=== PATIENT | female | born 1950 | race Caucasian/White ===

== ENCOUNTER 2017-10-18 17:26 | Inpatient (IN) | payer OTHER ==
[~2017-10-18] VITALS: Ht 170.2 cm; Wt 83.9 kg
--- NOTE | ~2017-10-18 | 2DMMODE ---
[facility] [address] [place] [address] 2 D/M-MODE ECHOCARDIOGRAM Name: COLLINS SAMUELS Room #: 349-I ADM IN [facility]#: [id number] Admission: 10/18/17 Attend Phys: Rick Moreira, Discharge: Date of : 52 Date of Service: 10/19/17 1344 Report #: [id number] THIS REPORT FOR: //name// APPROVED REPORT Study performed: 10/19/2017 12:46:49 EXAM: Comprehensive 2D, Doppler, and color-flow Echocardiogram Patient Location: Echo lab Room #: 349 Status: routine BSA: 1.96 HR: 74 bpm BP: 168/84 mmHg Rhythm: NSR Other Information Study Quality: Good Indications HTN, TIA. Hx: CAD, PVD, TIA, HTN, HLP, DM, tobacco abuse. Echo Enhancing Agent Indication: Rule out Shunt Agent(s) / Amount(s) Used: Agitated Saline 6 cc 2D Dimensions RVDd: 31.24 mm LVEF(%): 51.67 (>50%) IVSd: 14.27 (7-11mm) LVOT Diam: 19.28 (18-24mm) LVDd: 42.63 mm PWd: 8.53 (7-11mm) LVDs: 31.47 (25-40mm) Aortic Root: 26.12 mm Cadena's LVEF: 51.67 % Volumes Left Atrial Volume (Systole) Single Plane 4CH: 16.93 mL Single Plane 2CH: 25.27 mL Aortic Valve AoV Peak Breezy.: 1.20 m/s AO Peak Gr.: 5.74 mmHg LVOT Max P.05 mmHg LVOT Max V: 0.87 m/s YUE Vmax: 2.12 cm2 [facility] [place] [place] [address] 2 D/M-MODE ECHOCARDIOGRAM Name: ARVINDCOLLINS L Room #: 349-I ADM IN .R.#: [id number] Admission: 10/18/17 Attend Phys: Rick Moreira, Discharge: Date of : 52 Date of Service: 10/19/17 1344 Report #: [id number] Mitral Valve E/A Ratio: 1.1 MV Decel. Time: 163.96 ms MV E Max Breezy.: 0.75 m/s MV A Breezy.: 0.68 m/s MV PHT: 47.55 ms IVRT: 92.27 ms Pulmonary Valve PV Peak Breezy.: 0.77 m/s PV Peak Gr.: 2.35 mmHg Pulmonary Vein P Vein S: 0.53 m/s P Vein A: 0.30 m/s P Vein D: 0.50 m/s P Vein S/D Ratio: 1.06 Tricuspid Valve TR Peak Breezy.: 1.94 m/s RAP Estimate: 5.00 mmHg TR Peak Gr.: 15.05 mmHg PA Pressure: 20.00 mmHg Shunt Evaluation QP/QS: 0.00 Left Ventricle The left ventricle is normal size. There is normal LV segmental wall motion. Mild basal septal hypertrophy is present. Left ventricular systolic function is normal. LVEF is 60%. Right Ventricle The right ventricle is normal size. The right ventricular systolic function is normal. Atria The left atrium size is normal. No shunting noted by contrast bubble injection. The right atrium size is normal. Aortic Valve The aortic valve is mildly sclerotic. No aortic regurgitation. There is no aortic valvular stenosis. Mitral Valve The mitral valve is normal in structure. Trace to mild mitral regurgitation. Tricuspid Valve [facility] [address] [place] [address] 2 D/M-MODE ECHOCARDIOGRAM Name: COLLINS SAMUELS Room #: 349-I [facility] IN [facility]#: [id number] Admission: 10/18/17 Attend Phys: Rick Moreira, Discharge: Date of : 52 Date of Service: 10/19/17 1344 Report #: [id number] The tricuspid valve is normal in structure. Trace tricuspid regurgitation. Estimated PAP is 20-25mmHg. Pulmonic Valve The pulmonary valve is normal in structure. Trace pulmonic regurgitation. Great Vessels The aortic root is normal in size. Ascending aorta is not well visualized. IVC is normal in size and collapses >50% with inspiration. Pericardium There is no pericardial effusion. <Conclusion> Left ventricular systolic function is normal. There is normal LV segmental wall motion. LVEF 60%. No shunting noted by contrast bubble injection. The aortic valve is mildly sclerotic. No aortic regurgitation or stenosis. The mitral valve is normal in structure. Trace to mild mitral regurgitation. Trace tricuspid regurgitation. Estimated pulmonary artery pressure of 20-25mmHg. There is no pericardial effusion. <ELECTRONICALLY SIGNED> By: Balbir Bosch MD, FACC 10/19/17 1344 1344 1344 Balbir Bosch MD, FACC /INF
--- NOTE | ~2017-10-18 | HC ---
[facility] [place] [address] CONSULTATION Name: COLLINS SAMUELS Room #: 349-I ADM IN ..#: [id number] Admission: 10/18/17 Attend Phys: Rick Moreira MD Discharge: Date of : 52 Report #: [id number] THIS REPORT FOR: //name// CC: Mckay Collinscusromana Moreira DATE OF SERVICE: 10/19/2017 HISTORY OF PRESENT ILLNESS: This 66-year-old female patient who was evaluated by me because she had an episode of weakness and numbness on the left side with some speech difficulty. She indicated that she was in [facility] about 2 months ago when she had a stroke affecting the left side of the body. She made reasonably good recovery from that, but then she became weak again on the left side. They noticed new stroke as well as old strokes. At this time, her weakness is moderately severe. It does not fluctuate. She does not know anything which makes it better or worse. She indicates she is not on any antiplatelet therapy, but record indicate that she is on aspirin and Plavix and I am not sure when they have been started. REVIEW OF SYSTEMS: Indicate that she had a stroke 2 months ago. She has a history of hypertension and diabetes. A 14-point review of system was carried out. She does have some UTI in the past. She had right knee replacement. She has a history of asthma. She has a history of fibromyalgia , hysterectomy. She was not complaining of any new eye, ENT, cardiac, respiratory, GI, , musculoskeletal, constitutional, dermatological, hematological, psychiatric, throat, allergic symptom associated with present symptomatology, although she has multiple other histories as described above. PAST MEDICAL HISTORY: Positive for stroke, which happened 2 months ago. FAMILY HISTORY: Negative for any early age stroke. SOCIAL HISTORY: She does have a history of smoking. PHYSICAL EXAMINATION: Indicate she is alert. She is responsive. She is oriented. She can follow simple and complex command. Her speech, concentration, fund of knowledge and memory is at her baseline. Cranial nerve examination 2-12 looks unremarkable. She is weak in the left upper and left lower extremity. She takes longer for the position sense on the left side. There is no cerebellar sign. There is no carotid bruit in this patient. There is no thyroid mass. I could not have a very good look at the patient's fundus. She is moderately built individual who does not have any dysmorphic features of eyes, ears and face. Cardiac examinations appear unremarkable. The pulses are unremarkable. There is no edema, cyanosis or jaundice. Her hearing and vision [address] [address] CONSULTATION Name: COLLINS SAMUELS Room #: 349-I ADM IN M.R.#: [id number] Admission: 10/18/17 Attend Phys: Rick Moreira MD Discharge: Date of : 52 Report #: [id number] looks adequate. LABORATORY DATA: Her sodium is normal. Her white count is 11.3. Her head CT does show subacute strokes, which should not be showing up from the last and it may be new. IMPRESSION: 1. Cerebrovascular accident. 2. Smoking. 3. Multiple vascular risk factors. RECOMMENDATION: 1. She is on aspirin and Plavix for the time being and I think we will leave her on for 21 days and then she can be on Plavix. 2. I will get an MRA done. 3. We will get the record from [facility]. Depending upon the workup there, she may need more workup here because she is having a recurrence of CVA. Thank you very much for this referral and we will check a lipid profile on this patient also. By: 1332 10 Vance Lara MD /nt
--- NOTE | ~2017-10-18 | EKG ---
[address] [address] ELECTROCARDIOGRAM REPORT Name: COLLINS SAMUELS Room #: 170-5 ADM IN ..#: [id number] Admission: 10/18/17 Attend Phys: Dejan Saez MD Discharge: Date of : 52 Report #: [id number] THIS REPORT FOR: //name// [facility] ED Test Date: 2017-10-18 Test Time: 18:28:33 Pat Name: COLLINS SAMUELS Department: Room: Gender: F Computer Sciences Professor: lincoln : 1950 Requested By: Alexei Peralta Order Number: [id number] MD: Fede Torres Measurements Intervals [place] Rate: 104 P: 48 MN: 149 QRS: 27 QRSD: 94 T: 53 QT: 333 QTc: 438 Interpretive Statements Sinus tachycardia Compared to ECG 01/04/2016 08:15:00 Sinus rhythm no longer present Electronically Signed On 10-18-2017 21:21:12 CDT by Fede Torres [email or web address] <ELECTRONICALLY SIGNED> By: Fede Torres MD 10/18/172120 27 27 Fede Torres MD /OLIVIA
[~2017-10-18 17:26] MED LIST: ASPIRIN325 PO; BYSTOLIC 5 MG5 M1 PO; CRESTOR10 MG PO; CYMBALTA60 MG PO; FENOFIBRATE160 MG PO; FLEXERIL PO; JANUMET 50-1,01 EACH PO; NEURONTIN 300300 M1 PO; PROTONIX40 M3 PO; VASCEPA1 GM PO; WELLBUTRIN XL300 MG PO
[2017-10-18 19:12] LABS: EOSINOPHILS 1.2 % (0.0-3.0); HEMATOCRIT 43.8 % (37.0-47.0); HEMOGLOBIN 14.7 gm/dL (12.0-15.0); LYMPHOCYTES 40.3 % (24.0-44.0); MCH 31.4 pg (26.0-34.0); MCHC 33.5 g/dL (28.0-37.0); MCV 93.8 fL (80.0-100.0); MONOCYTES 4.8 % (1.0-8.0); PLATELET COUNT 295 thou/uL (150-400); POLYS 52.7 % (36.0-66.0); RBC 4.67 mil/uL (4.20-5.00); RDW 13.2 % (10.5-14.5); WBC 13.3 thou/uL (4.0-11.0)
[2017-10-18 19:17] LABS: CALCIUM 9.4 mg/dL (8.5-10.1); CREATININE 1.2 mg/dL (0.6-1.0)
[2017-10-18 19:25] LABS: APTT 24.7 Seconds (24.5-32.8)
[2017-10-18 20:08] LABS: URINE BILIRUBIN NEGATIVE (Negative); URINE BLOOD NEGATIVE (Negative); URINE CLARITY CLEAR; URINE COLOR YELLOW; URINE GLUCOSE-RANDOM* NEGATIVE (Negative); URINE KETONES NEGATIVE (Negative); URINE LEUKOCYTES 1+ (Negative); URINE NITRITE NEGATIVE (Negative); URINE PROTEIN (DIPSTICK) NEGATIVE (Negative); URINE UROBILINOGEN 0.2 E.U./dl (0.2-1.0)
[2017-10-18 20:22] LABS: SQUAMOUS >10 Many /LPF (0-3); URINE RBC 0-2 Rare /HPF (0-2); URINE WBC 6-15 Few /HPF (0-5)
[2017-10-18 20:24] LABS: BACTERIA None Seen /HPF (None Seen); CASTS None Seen /LPF (None Seen); CRYSTALS None Seen /LPF (None Seen)
[2017-10-18 21:45] VITALS: BP 145/76
[2017-10-18 21:47] VITALS: BP 145/76
[2017-10-18 22:00] VITALS: BP 135/77
[2017-10-19 03:42] VITALS: BP 128/61
[2017-10-19 05:59] LABS: HEMATOCRIT 39.5 % (37.0-47.0); HEMOGLOBIN 13.3 gm/dL (12.0-15.0); MCH 31.9 pg (26.0-34.0); MCHC 33.8 g/dL (28.0-37.0); MCV 94.4 fL (80.0-100.0); RBC 4.18 mil/uL (4.20-5.00); RDW 13.5 % (10.5-14.5); WBC 11.3 thou/uL (4.0-11.0)
[2017-10-19 06:06] LABS: CALCIUM 9.1 mg/dL (8.5-10.1); CREATININE 1.1 mg/dL (0.6-1.0); POTASSIUM 4.5 mmol/L (3.5-5.1)
[2017-10-19 07:24] VITALS: BP 146/71
[2017-10-19 11:23] VITALS: BP 168/84
[2017-10-19 12:56] LABS: URINE BILIRUBIN NEGATIVE (Negative); URINE BLOOD NEGATIVE (Negative); URINE CLARITY CLEAR; URINE COLOR YELLOW; URINE GLUCOSE-RANDOM* NEGATIVE (Negative); URINE KETONES NEGATIVE (Negative); URINE LEUKOCYTES-REFLEX NEGATIVE (Negative); URINE NITRITE-REFLEX NEGATIVE (Negative); URINE PROTEIN (DIPSTICK) NEGATIVE (Negative); URINE SPECIFIC GRAVITY >= 1.030 (1.005-1.035); URINE UROBILINOGEN 0.2 E.U./dl (0.2-1.0)
[2017-10-19 15:32] VITALS: BP 167/79
[2017-10-19 19:24] VITALS: BP 137/66
[2017-10-20 04:21] VITALS: BP 148/73
[2017-10-20 07:58] VITALS: BP 161/88
[2017-10-20 11:33] VITALS: BP 149/96
[2017-10-20 17:39] VITALS: BP 159/79
[2017-10-20] MEDS ORDERED: TYLENOL325 MG PO (18:00)
[2017-10-20] MEDS ORDERED: PLAVIX 75 MG TA75 M1 PO (18:00)
[2017-10-20] MEDS ORDERED: ZETIA10 MG PO (18:00)
[2017-10-20] MEDS ORDERED: LISINOPRIL10 MG PO (18:00)
[2017-10-20 18:22] LABS: TSH 0.578 uIU/mL (0.358-3.740)
[2017-10-20 18:24] VITALS: BP 159/79
== END 2017-10-20 19:18 | disposition home or self-care (01) | DRG 65 ==
LOC: ER 17:26 → 3W 20:59 → EROBS 20:59 → 3W 21:47
PROVIDERS: Emergency Medicine; Internal Medicine; Nurse Practitioner Family; Psychiatry & Neurology Neuromuscular Medicine
DX: I63.233 Cerebral infarction due to unspecified occlusion or stenosis of bilateral carotid arteries (principal); N39.0 Urinary tract infection, site not specified; N17.9 Acute kidney failure, unspecified; E78.00 Pure hypercholesterolemia, unspecified; M79.7 Fibromyalgia; E11.65 Type 2 diabetes mellitus with hyperglycemia; J45.909 Unspecified asthma, uncomplicated; I10 Essential (primary) hypertension; K21.9 Gastro-esophageal reflux disease without esophagitis; I08.1 Rheumatic disorders of both mitral and tricuspid valves; E11.51 Type 2 diabetes mellitus with diabetic peripheral angiopathy without gangrene; Z96.651 Presence of right artificial knee joint; F41.9 Anxiety disorder, unspecified; F17.210 Nicotine dependence, cigarettes, uncomplicated; I25.10 Atherosclerotic heart disease of native coronary artery without angina pectoris; Z90.710 Acquired absence of both cervix and uterus; Z87.81 Personal history of (healed) traumatic fracture; Z86.73 Personal history of transient ischemic attack (TIA), and cerebral infarction without residual deficits; Z90.49 Acquired absence of other specified parts of digestive tract; Z79.82 Long term (current) use of aspirin; Z79.899 Other long term (current) drug therapy; Z88.8 Allergy status to other drugs, medicaments and biological substances; Z82.3 Family history of stroke
CPT/HCPCS: 10879

== ENCOUNTER 2018-02-15 12:16 | Emergency (ER) | payer OTHER ==
[~2018-02-15] VITALS: Ht 167.6 cm; Wt 83.9 kg
[~2018-02-15 12:16] MED LIST changes: +CEFUROXIME250 MG PO; +LANTUS100 UNIT/M SUBQ; +LISINOPRIL10 MG PO; +PLAVIX 75 MG TA75 M1 PO; +TRAMADOL 50 MG50 MG PO; +TYLENOL325 MG PO; +ZETIA10 MG PO
[2018-02-15] MEDS ORDERED: NORCO 5-325 TA1 EACH PO (13:08)
[2018-02-15] MEDS ORDERED: CYCLOBENZAPRINE5 MG PO (13:08)
== END 2018-02-15 13:19 | disposition home or self-care (01) ==
LOC: ER 12:16
DX: M25.561 Pain in right knee (principal); M79.671 Pain in right foot; M79.7 Fibromyalgia; E11.9 Type 2 diabetes mellitus without complications; J45.909 Unspecified asthma, uncomplicated; I10 Essential (primary) hypertension; K21.9 Gastro-esophageal reflux disease without esophagitis; F17.210 Nicotine dependence, cigarettes, uncomplicated; Z96.651 Presence of right artificial knee joint; Z90.710 Acquired absence of both cervix and uterus; Z90.49 Acquired absence of other specified parts of digestive tract; Z79.4 Long term (current) use of insulin; Z79.899 Other long term (current) drug therapy; Z88.8 Allergy status to other drugs, medicaments and biological substances; Z91.018 Allergy to other foods; W10.0XXA Fall (on)(from) escalator, initial encounter; Y93.89 Activity, other specified; Y92.89 Other specified places as the place of occurrence of the external cause; Y99.8 Other external cause status

== ENCOUNTER → 2019-11-14 | Outpatient (CLI) | payer OTHER ==
[~2019-11-14] MED LIST changes: +CYCLOBENZAPRINE5 MG PO; +NORCO 5-325 TA1 EACH PO
== END ==
LOC: SJCVC 13:46
PROVIDERS: ATTEND Internal Medicine Cardiovascular Disease
DX: R94.31 Abnormal electrocardiogram [ECG] [EKG] (principal); I65.23 Occlusion and stenosis of bilateral carotid arteries; I25.10 Atherosclerotic heart disease of native coronary artery without angina pectoris; E11.9 Type 2 diabetes mellitus without complications; I73.9 Peripheral vascular disease, unspecified; K55.1 Chronic vascular disorders of intestine; I10 Essential (primary) hypertension; E78.00 Pure hypercholesterolemia, unspecified; R06.02 Shortness of breath

== ENCOUNTER → 2020-01-16 | Outpatient (CLI) | payer OTHER ==
[~2020-01-16] MED LIST changes: +CRESTOR40 MG PO; +JARDIANCE10 MG PO; +MECLIZINE HCL25 M1 PO; +METFORMIN HCL500 M3 PO; +OLMESARTAN-HCT1 EACH PO; +OXYBUTYNIN 5 MG5 M2 PO; +OZEMPIC0.25 MG/0. SUBQ; +REPATHA SU140 MG/1 M SUBQ; +ZELNORM6 MG PO
== END ==
LOC: SJCVCIMAG 07:43
PROVIDERS: ATTEND Internal Medicine Cardiovascular Disease
DX: I65.23 Occlusion and stenosis of bilateral carotid arteries (principal); I49.3 Ventricular premature depolarization; I49.1 Atrial premature depolarization; I73.9 Peripheral vascular disease, unspecified; I25.10 Atherosclerotic heart disease of native coronary artery without angina pectoris; E78.5 Hyperlipidemia, unspecified; I10 Essential (primary) hypertension; E11.9 Type 2 diabetes mellitus without complications; K55.1 Chronic vascular disorders of intestine; I77.819 Aortic ectasia, unspecified site; F17.210 Nicotine dependence, cigarettes, uncomplicated; Z79.899 Other long term (current) drug therapy

== ENCOUNTER → 2020-01-18 | Outpatient (CLI) | payer OTHER ==
[~2020-01-18] VITALS: Ht 170.2 cm; Wt 69.4 kg
--- NOTE | ~2020-01-18 | HC ---
[facility] [place] [address] CONSULTATION Name: COLLINS SAMUELS Room #: [facility]#: [id number] Admission: 01/18/20 Attend Phys: Michael Jeff MD Discharge: Date of : 52 Report #: [id number] THIS REPORT FOR: cc: Mckay John,Elian Mendez MD ~ CC: Mckay Jeff DATE OF SERVICE: 01/18/2020 We were asked to see the patient by Dr. Jeff. HISTORY OF PRESENT ILLNESS: The patient is a 69-year-old with carotid artery disease. The patient states that approximately 3 years ago, she had a transient ischemic attack that was manifested by transient left upper extremity weakness. The patient has had no recent difficulty, however. A carotid duplex evaluation in the office was positive. This led to carotid arteriography today. A 90% right carotid artery stenosis was identified at the bifurcation and including the external carotid. The left carotid has trivial disease. We note the left vertebral arises from the transverse aorta. PAST MEDICAL HISTORY: Also, significant for diabetes mellitus, hypertension, and hyperlipidemia. The patient is a longtime smoker. MEDICATIONS AT HOME: Includes alprazolam, Plavix, Cymbalta, Jardiance, Repatha, Zetia, fenofibrate, gabapentin, lisinopril, meclizine, metformin, Nebivolol. olmesartan, hydrochlorothiazide, oxybutynin, Protonix, promethazine, Crestor, Semaglutide, Varenicline. ALLERGIES: ATORVASTATIN CAUSES RASH AND GI INTOLERANCE. SOCIAL HISTORY: The patient is . Current smoker, trying to quit. FAMILY HISTORY: Heart disease in maternal grandmother. REVIEW OF SYSTEMS: GENERAL: No weight change. No fever. Does admit to some general fatigue. EYES: Wears glasses. ENT: No hearing change. No sinus problems. RESPIRATORY: Denies cough or shortness of breath. CARDIAC: Denies chest pain or palpitations. GASTROINTESTINAL: Denies nausea, vomiting, blood in stools. GENITOURINARY: Denies urgency, frequency, blood in urine. MUSCULOSKELETAL: The patient has a previous orthopedic injury and states her [facility] [address] [place] [address] CONSULTATION Name: COLLINS SAMUELS Room #: [facility]#: [id number] Admission: 01/18/20 Attend Phys: Michael Jeff MD Discharge: Date of : 52 Report #: [id number] left leg is shorter and this causes some gait problems. SKIN: No rash or infection. ENDOCRINE: No goiter, no tremor. NEUROLOGIC: No recent motor or sensory dysfunction. HEMATOLOGIC: No bruisability or bleeding. PHYSICAL EXAMINATION: GENERAL: The patient is lying in bed after cath today. VITAL SIGNS: Blood pressure 150/70, heart rate 78. HEENT: No scleral icterus, no arcus. NECK: No mass. I hear no bruit. CHEST: Clear. HEART: Rhythm regular, no murmur. ABDOMEN: Soft, no mass, no tenderness. EXTREMITIES: No clubbing, cyanosis or edema. SKIN: No rash or infection. PULSES: I do not feel popliteal, dorsalis pedis or posterior tibial pulses. NEUROLOGIC: No motor or sensory dysfunction. PSYCHIATRIC: Awake, alert and oriented x 3, appropriate, pleasant. ASSESSMENT AND RECOMMENDATIONS: The patient has high-grade and currently asymptomatic right carotid stenosis. I have recommended carotid endarterectomy. The risks and details of this were discussed. Options and alternatives were reviewed. Risks include but are not limited to bleeding, infection, anesthesia risks, stroke and neurologic dysfunction. The patient understands all of this and she wishes to proceed with surgery as soon as possible. Thank you for the consult. By: 1356 20 Elian Garza MD /nt
[2020-01-18 09:03] VITALS: BP 179/87
[2020-01-18 09:25] LABS: HEMATOCRIT 47.7 % (37.0-47.0); HEMOGLOBIN 16.1 gm/dL (12.0-15.0); MCH 31.7 pg (26.0-34.0); MCHC 33.6 g/dL (28.0-37.0); MCV 94.4 fL (80.0-100.0); RBC 5.06 mil/uL (4.20-5.00); RDW 13.4 % (10.5-14.5); WBC 11.3 thou/uL (4.0-11.0)
[2020-01-18 09:33] LABS: CALCIUM 9.8 mg/dL (8.5-10.1); CREATININE 0.8 mg/dL (0.6-1.0); POTASSIUM 3.1 mmol/L (3.5-5.1)
== END | disposition home or self-care (01) ==
LOC: CATH 07:27
PROVIDERS: ATTEND Nuclear Medicine Nuclear Cardiology
DX: I65.21 Occlusion and stenosis of right carotid artery (principal); I70.1 Atherosclerosis of renal artery; K55.1 Chronic vascular disorders of intestine; I73.9 Peripheral vascular disease, unspecified; I10 Essential (primary) hypertension; E78.5 Hyperlipidemia, unspecified; E78.00 Pure hypercholesterolemia, unspecified; E11.9 Type 2 diabetes mellitus without complications; J45.909 Unspecified asthma, uncomplicated; K21.9 Gastro-esophageal reflux disease without esophagitis; M79.7 Fibromyalgia; F17.210 Nicotine dependence, cigarettes, uncomplicated; Z98.890 Other specified postprocedural states; Z79.899 Other long term (current) drug therapy; Z82.49 Family history of ischemic heart disease and other diseases of the circulatory system; Z96.651 Presence of right artificial knee joint; Z90.711 Acquired absence of uterus with remaining cervical stump; Z86.73 Personal history of transient ischemic attack (TIA), and cerebral infarction without residual deficits; Z90.49 Acquired absence of other specified parts of digestive tract; Z88.8 Allergy status to other drugs, medicaments and biological substances

== ENCOUNTER → 2020-01-30 | Outpatient (CLI) | payer OTHER ==
[~2020-01-30] MED LIST changes: -BYSTOLIC 5 MG5 M1 PO; +BYSTOLIC10 MG PO; +EZETIMIBE10 MG PO; +LO-DOSE ASPIRIN81 M1 PO; +NEURONTIN 300M300 M2 PO; +PLAVIX 75 MG TA75 MG PO; +SEROQUEL 25 MG25 M1 PO
== END ==
LOC: LAB 08:28
PROVIDERS: ATTEND Surgery Vascular Surgery
DX: Z01.812 Encounter for preprocedural laboratory examination (principal); Z20.828 Contact with and (suspected) exposure to other viral communicable diseases

== ENCOUNTER 2020-02-03 06:09 | Inpatient (IN) | payer OTHER ==
[2020-01-30 13:23] LABS: ABSOLUTE NEUTROPHILS 6.3 thou/uL (1.4-8.2); BASOPHILS 0.4 % (0.0-2.0); EOSINOPHILS 0.9 % (0.0-3.0); HEMATOCRIT 48.3 % (37.0-47.0); HEMOGLOBIN 16.5 gm/dL (12.0-15.0); LYMPHOCYTES 38.4 % (24.0-44.0); MCHC 34.3 g/dL (28.0-37.0); MCV 93.4 fL (80.0-100.0); MONOCYTES 4.8 % (1.0-8.0); PLATELET COUNT 362 thou/uL (150-400); POLYS 55.5 % (36.0-66.0); RBC 5.17 mil/uL (4.20-5.00); RDW 13.4 % (10.5-14.5); URINE BILIRUBIN NEGATIVE (Negative); URINE BLOOD NEGATIVE (Negative); URINE CLARITY CLEAR; URINE COLOR YELLOW; URINE GLUCOSE-RANDOM* NEGATIVE (Negative); URINE KETONES NEGATIVE (Negative); URINE LEUKOCYTES-REFLEX TRACE (Negative); URINE NITRITE-REFLEX NEGATIVE (Negative); URINE PROTEIN (DIPSTICK) NEGATIVE (Negative); URINE UROBILINOGEN 0.2 E.U./dl (0.2-1.0); WBC 11.3 thou/uL (4.0-11.0)
[2020-01-30 13:34] LABS: APTT 28.6 Seconds (24.5-32.8); PROTIME 10.1 Seconds (9.3-11.4)
[2020-01-30 13:39] LABS: CALCIUM 9.6 mg/dL (8.5-10.1); CREATININE 0.7 mg/dL (0.6-1.0); POTASSIUM 3.5 mmol/L (3.5-5.1); TOTAL BILIRUBIN 0.3 mg/dL (0.2-1.0); TOTAL PROTEIN 7.5 g/dL (6.4-8.2)
--- NOTE | 2020-01-30 16:20 | EKG ---
[facility] [place] [address] ELECTROCARDIOGRAM REPORT Name: COLLINS SAMUELS Room #: [facility] IN M.R.#: [id number] Admission: Attend Phys: Elian Garza MD Discharge: Date of : 52 Report #: [id number] THIS REPORT FOR: cc: Mckay John Alan Z. DO Santiago, Patrick MD [facility] ~ THIS REPORT FOR: //name// [facility] Test Date: 2020-01-30 Test Time: 13:13:53 Pat Name: COLLINS SAMUELS Department: Room: Gender: F Director Of Clinical Applications: Beau HUBER : 1950 Requested By: Elian Garza Order Number: [id number] : Henrique Mack Measurements Intervals [place] Rate: 98 P: 64 [place]: 154 QRS: 27 QRSD: 100 T: 37 QT: 347 QTc: 444 Interpretive Statements Sinus rhythm Compared to ECG 12/08/2017 16:43:09 No significant changes Electronically Signed On 01-30-2020 16:19:52 CDT by Henrique Mack [email or web address] <ELECTRONICALLY SIGNED> By: Henrique Mack MD, FACC 01/30/20 8949 1313 1313 Henrique Mack MD, [facility] /EPI
[2020-02-03] VITALS (7 sets, daily range): BP systolic 97–154; BP diastolic 38–77
[~2020-02-03] VITALS: Ht 167.6 cm; Wt 68.0 kg
--- NOTE | 2020-02-03 16:26 | NUR ---
chart review. pt new to unite after right carotid endarterectomy with patch closure. unable to visit with her rt resting. noted in chart has spouse, lives in house, 2 steps to enter. has cane and walker. son's in the area for support if needed. no anticipated dc needs. dcp from home then dc to home.
--- NOTE | 2020-02-03 19:27 | NUR ---
ASSUMED CARE @ 1155 02/03/20, PT ASSESSMENTS AND VSS COMPLETE ICU PROTOCOL. PT ARRIVED ON NATALI DRIP LINE, SBP IN THE 120'S, PT ARRIVED SB IN THE 40-50, DR HALL AND LILIBETH AWARE. WILL CONT TO MONITOR.
[2020-02-04] VITALS (9 sets, daily range): BP systolic 117–136; BP diastolic 49–57
--- NOTE | 2020-02-04 04:24 | NUR ---
ASSUMED PT CARE AT 1900. VSS. PT A&0X4. ON NATALI GTT AT 10MCG/MIN. MAIN CONCERN FOR PT WAS HER U/O THROUGH THE NOC. IVF RESTARTED AT 100MLS/HR AT 10PM LAST NOC. U/0 WAS BTW 18-25 MLS/HR. NATALI GTT TURNED COMPLETED OFF AT 1AM & VALENZUELA CATHERTHER IRRIGATED. URINE PICKED UP TO 25-30MLS/ HR. PT REMIANS STABLE, DID NOT REST WELL THROUGH THE NOC. PT STATED HAVING TROUBLE SLEEPING IN HOSPITALS. PT HAS PAIN TO R NECK ACCESS SITE. DRIED DRAINAGE ON DRESSING NOTTED SINCE ASSUMPTION OF CARE. PT IS STABLE, EAGER TO GO HOME LATER TODAY. WILL CONTINUE TO ANTONIETA MONITOR U/O
[2020-02-04 05:40] LABS: CREATININE 0.6 mg/dL (0.6-1.0)
[2020-02-04 06:12] LABS: HEMATOCRIT 33.1 % (37.0-47.0); HEMOGLOBIN 11.2 gm/dL (12.0-15.0); MCH 32.6 pg (26.0-34.0); MCHC 33.9 g/dL (28.0-37.0); MCV 96.1 fL (80.0-100.0); RBC 3.44 mil/uL (4.20-5.00); RDW 13.7 % (10.5-14.5)
--- NOTE | 2020-02-04 11:33 | NUR ---
ALERT AND ORIENTED, VITALS STABLE. STATES HAVING SOME SORENESS ON RT. NECK INCISION SITE. DRESSING WITH KITTY VAC NOTED AND CHANGED BY LILIBETH THIS MORNING. TOLERATED DIET W/O NAUSEA. UP TO CHAIRA AND BATHROOM AND WAS ABLE TO VOID POST VALENZUELA REMOVAL. DC ORDERS RECEIVED, DC INSTRUCTIONS AND APPOINTMENT CARD GIVEN TO PATIENT. IV DC'D AND PATTIENT'S NOTIFIED OF DC AND STATED IS ON THE WAY.
--- NOTE | 2020-02-04 11:53 | O ---
[facility] [place] [address] OPERATIVE REPORT Name: COLLINS SAMUELS Room #: 250-P ADM IN M.R.#: [id number] Admission: 02/03/20 Attend Phys: Elian Garza MD Discharge: Date of : 52 Report #: [id number] THIS REPORT FOR: cc: Mckay John,Mckay Clifford,Elian Mccullough MD ~ CC: Mckay Garza DATE OF SERVICE: 02/03/2020 PREOPERATIVE DIAGNOSIS: Right carotid artery stenosis. POSTOPERATIVE DIAGNOSIS: Right carotid artery stenosis. OPERATION: Right carotid endarterectomy with patch closure. SURGEON: Elian Garza MD FUEL RETROFITTING TECHNICIAN: Satya Howard. ANESTHESIA: General. INDICATIONS: The patient is 69 years old with an asymptomatic, but a high-grade right internal carotid stenosis seen for Dr. Jeff. The patient has a 90% lesion at the origin of the right internal carotid. The left carotid has no significant stenosis. FINDINGS AND TECHNIQUE: After general anesthesia was established, an oblique right neck incision was made. Common facial vein was divided. Common internal and external carotid and superior thyroid arteries were isolated and controlled, 10,000 units of heparin were given. When the carotid vessels were occluded, there was significant change in the EEG tracing on the right side. Therefore, an Inahara Seay shunt was placed. The carotid arteries were occluded. The arteriotomy was made. The shunt was placed and flow was established through it, EEG reverted to normal. With the shunt in place, the endarterectomy was performed. Neointima was inspected and all loose debris was removed. Tacking sutures were placed at the transition zone. When the endarterectomy was deemed to be satisfactory, the arteriotomy was closed with thin walled pericardial patch and running Prolene. Prior to finishing the closure, the carotid vessels were backbled and the artery was [facility] [address] [place] [address] OPERATIVE REPORT Name: COLLINS SAMUELS Room #: 250-P [facility] IN .R.#: [id number] Admission: 02/03/20 Attend Phys: Elian Garza MD Discharge: Date of : 52 Report #: [id number] flushed with heparinized saline. Flow was established first through the external and the internal carotid arteries after the shunt was removed and the suture was tied. Protamine was given to reverse the heparin. Hemostasis was ascertained. When hemostasis was satisfactory, a Fausto drain was brought out through the bottom pole of the incision and the wound was closed in layers. The patient was taken to the recovery area in good condition having tolerated the procedure well. All counts reported as correct. An EEG had reverted to normal. <ELECTRONICALLY SIGNED> By: Elian Garza MD 02/04/20 1153 1029 1050 Elian Garza MD /nt
--- NOTE | 2020-02-04 11:56 | NUR ---
PATIENT DC'D AT 1150 TAKEN TO ER EXIT VIA WC.
--- NOTE | 2020-02-06 17:06 | PATH ---
[facility] [address] [place] [address] PATHOLOGY RPT PROCEDURE Name: JESSICA VERDIN Room #: 250-P [facility] IN M.R.#: [id number] Admission: 02/03/20 Date of : 52 Discharge: 02/04/20 Report #: [id number] Path Case #: [id number] [facility] Accession Number: [id number] . 01 Material submitted: . carotid body - RIGHT CAROTID PLAQUE. Modifiers: right . 01 Clinical history: . DISORDER OF ARTERIES . 02 Diagnosis: Right carotid plaque, endarterectomy: - Fragments of vessel wall with myxoid changes and calcified atherosclerotic plaque material. (IUV:forepart reducer; 02/06/2020) [facility] 02/06/2020 1406 Local . 02 Electronically signed: . Katiana Castillo MD, Pathologist NPI- [id number] . 01 Gross description: . Received in formalin labeled "Jessica Verdin, right carotid plaque" is a tubular fragment of avitia-white rubbery tissue measuring 2.6 x 1.2 x 1.1 cm. The specimen is sectioned to reveal extensive avitia-yellow calcifications comprising approximately 80% of the cut surfaces. Plisse Machine Operator Helper sections are submitted in cassette A1 following decalcification. ([facility]; 02/05/2020) [facility] 02/06/2020 1406 Local . 02 Pathologist provided ICD-10: I77.89 . 02 CPT . 505266, 628244 Specimen Comment: A courtesy copy of this report has been sent to [phone], [phone]- Specimen Comment: [phone] Specimen Comment: Report sent to / DR ERICKSON Performed at: [address], [place] [id number] MD Ministerio Cuadra MD Phone: [phone] Performed at: [address] [id number] MD Katiana Castillo MD Phone: [phone]
== END 2020-02-04 11:50 | disposition home or self-care (01) | DRG 39 ==
LOC: TBA 06:09 → PRE 12:02 → ICU 12:07 → PRE 12:21 → ICU 02-04 11:50
PROVIDERS: Physician Assistant; ADMIT Surgery Vascular Surgery; ATTEND Surgery Vascular Surgery
DX: I65.21 Occlusion and stenosis of right carotid artery (principal); Z96.659 Presence of unspecified artificial knee joint; Z90.49 Acquired absence of other specified parts of digestive tract; Z90.710 Acquired absence of both cervix and uterus; Z88.8 Allergy status to other drugs, medicaments and biological substances
CPT/HCPCS: 10204; 50010; 50101; 50386; 50417; 50455; 51301; 51471; 52279; 52287; 54118; 56524; 56526; 56528; 56531; 56534; 57254; 70005

== ENCOUNTER → 2020-05-01 | Outpatient (CLI) | payer OTHER | LOC: SJCVCIMAG 06:43 | PROVIDERS: ATTEND Internal Medicine Cardiovascular Disease | DX: I65.23 Occlusion and stenosis of bilateral carotid arteries (principal); I77.9 Disorder of arteries and arterioles, unspecified; K55.1 Chronic vascular disorders of intestine; I25.10 Atherosclerotic heart disease of native coronary artery without angina pectoris; I10 Essential (primary) hypertension; E78.00 Pure hypercholesterolemia, unspecified; I77.819 Aortic ectasia, unspecified site; J45.909 Unspecified asthma, uncomplicated; E11.51 Type 2 diabetes mellitus with diabetic peripheral angiopathy without gangrene; Z86.73 Personal history of transient ischemic attack (TIA), and cerebral infarction without residual deficits; Z87.440 Personal history of urinary (tract) infections; Z79.84 Long term (current) use of oral hypoglycemic drugs; Z79.899 Other long term (current) drug therapy ==

== ENCOUNTER → 2020-07-26 | Outpatient (CLI) | payer OTHER | LOC: SJCVCIMAG 08:24 | PROVIDERS: ATTEND Internal Medicine Cardiovascular Disease | DX: R94.31 Abnormal electrocardiogram [ECG] [EKG] (principal); I25.10 Atherosclerotic heart disease of native coronary artery without angina pectoris; E11.51 Type 2 diabetes mellitus with diabetic peripheral angiopathy without gangrene; I73.9 Peripheral vascular disease, unspecified; K55.1 Chronic vascular disorders of intestine; E78.00 Pure hypercholesterolemia, unspecified; I65.23 Occlusion and stenosis of bilateral carotid arteries; I10 Essential (primary) hypertension; J45.909 Unspecified asthma, uncomplicated; F17.210 Nicotine dependence, cigarettes, uncomplicated; Z86.73 Personal history of transient ischemic attack (TIA), and cerebral infarction without residual deficits; Z79.84 Long term (current) use of oral hypoglycemic drugs; Z79.899 Other long term (current) drug therapy; Z88.1 Allergy status to other antibiotic agents ==

== ENCOUNTER → 2020-11-06 | Outpatient (CLI) | payer OTHER | LOC: SJCVCIMAG 10:46 | PROVIDERS: ATTEND Nuclear Medicine Nuclear Cardiology | DX: I73.9 Peripheral vascular disease, unspecified (principal); M79.604 Pain in right leg; M79.605 Pain in left leg; K55.1 Chronic vascular disorders of intestine; I77.9 Disorder of arteries and arterioles, unspecified; I25.10 Atherosclerotic heart disease of native coronary artery without angina pectoris; I10 Essential (primary) hypertension; I77.819 Aortic ectasia, unspecified site; E11.51 Type 2 diabetes mellitus with diabetic peripheral angiopathy without gangrene; E78.00 Pure hypercholesterolemia, unspecified; J45.909 Unspecified asthma, uncomplicated; F17.210 Nicotine dependence, cigarettes, uncomplicated; Z90.49 Acquired absence of other specified parts of digestive tract; Z90.710 Acquired absence of both cervix and uterus; Z88.8 Allergy status to other drugs, medicaments and biological substances; Z79.84 Long term (current) use of oral hypoglycemic drugs; Z79.82 Long term (current) use of aspirin; Z86.73 Personal history of transient ischemic attack (TIA), and cerebral infarction without residual deficits; Z79.899 Other long term (current) drug therapy; Z82.49 Family history of ischemic heart disease and other diseases of the circulatory system ==